=== PATIENT | female | born 2000 ===

== ENCOUNTER 2021-09-01 20:07 | Emergency (ER) | payer SELFPAY ==
--- NOTE | 2021-09-01 21:28 | Emergency Department Report ---
ED ENT HPI - General Chief complaint: Dental/Oral Stated complaint: TOOTHACHE Time Seen by Provider: 09/01/21 20:54 Source: patient Mode of arrival: Ambulatory Limitations: No Limitations - History of Present Illness Initial comments: 20-year-old female no significant past medical history presents emerge department complaining of a 3-day history of left lower molar pain of unknown etiology in the dull throbbing fashion worse with palpation range of motion chewing/eating. She reports no hemoptysis no hematemesis hematochezia, no nausea, no vomiting, no foul odor or strange taste fevers, chills, sweats. She has no known dental trauma to the region MD complaint: tooth pain -: Gradual, Sudden 1 - Pain in region Quality: aching, dull Consistency: constant Improves with: none Worsens with: none Context- Dental: history of dental caries Associated Symptoms: toothache - Related Data Previous Rx's Medication Instructions Recorded Last Taken Type Albuterol Mdi (or & Nicu Only) 1 puff IH Q4-6H PRN #1 inha 09/01/21 Unknown Rx [ProAir HFA Inhaler] Ketorolac [Toradol] 10 mg PO Q6H PRN #15 tablet 09/01/21 Unknown Rx Lidocaine Viscous 2% 5 ml MM Q3H PRN #120 udc 09/01/21 Unknown Rx ED Dental HPI - General Chief complaint: Dental/Oral Stated complaint: TOOTHACHE Time Seen by Provider: 09/01/21 20:54 Source: patient Mode of arrival: Ambulatory Limitations: No Limitations - Related Data Previous Rx's Medication Instructions Recorded Last Taken Type Albuterol Mdi (or & Nicu Only) 1 puff IH Q4-6H PRN #1 inha 09/01/21 Unknown Rx [ProAir HFA Inhaler] Ketorolac [Toradol] 10 mg PO Q6H PRN #15 tablet 09/01/21 Unknown Rx Lidocaine Viscous 2% 5 ml MM Q3H PRN #120 udc 09/01/21 Unknown Rx ED Review of Systems ROS: Stated complaint: TOOTHACHE Other details as noted in HPI Comment: All other systems reviewed and negative ED Past Medical Hx - Past Medical History Previous Medical History?: No - Surgical History Past Surgical History?: No - Medications Home Medications: Home Medications Medication Instructions Recorded Confirmed Last Taken Type Albuterol Mdi (or & Nicu Only) 1 puff IH Q4-6H PRN #1 inha 09/01/21 Unknown Rx [ProAir HFA Inhaler] Ketorolac [Toradol] 10 mg PO Q6H PRN #15 tablet 09/01/21 Unknown Rx Lidocaine Viscous 2% 5 ml MM Q3H PRN #120 udc 09/01/21 Unknown Rx ED Physical Exam - General Limitations: No Limitations General appearance: alert, in no apparent distress - Head Head exam: Present: atraumatic, normocephalic - Eye Eye exam: Present: normal appearance - ENT ENT exam: Present: mucous membranes moist, other (Pain tenderness to tooth number 17 and 18 which seems to be impacting/impacted upon tooth #18 no adjacent gingival swelling. Airway is patent tongue uvula midline no evidence of any peritonsillar abscess is noted.) - Neck Neck exam: Present: normal inspection, tenderness. Absent: lymphadenopathy - Respiratory Respiratory exam: Present: normal lung sounds bilaterally. Absent: respiratory distress, wheezes, rales, chest wall tenderness, accessory muscle use, decreased breath sounds, prolonged expiratory - Cardiovascular Cardiovascular Exam: Present: regular rate, normal rhythm. Absent: systolic murmur, diastolic murmur, rubs, gallop - GI/Abdominal GI/Abdominal exam: Present: soft, normal bowel sounds - Extremities Exam Extremities exam: Present: normal inspection - Back Exam Back exam: Present: normal inspection - Neurological Exam Neurological exam: Present: alert, oriented X3 - Psychiatric Psychiatric exam: Present: normal affect, normal mood - Skin Skin exam: Present: warm, dry, intact, normal color. Absent: rash Critical care attestation.: If time is entered above; I have spent that time in minutes in the direct care of this critically ill patient, excluding procedure time. ED Disposition Clinical Impression: Dentalgia Disposition: 01 HOME / SELF CARE / HOMELESS Is pt being admited?: No Does the pt Need Aspirin: No Condition: Stable Instructions: Tooth Injuries Prescriptions: Lidocaine Viscous 2% 5 ml MM Q3H PRN #120 udc PRN Reason: Pain, Moderate (4-6) Albuterol Mdi (or & Nicu Only) [ProAir HFA Inhaler] 1 puff IH Q4-6H PRN #1 inha PRN Reason: Cough Ketorolac [Toradol] 10 mg PO Q6H PRN #15 tablet PRN Reason: Pain Referrals: [facility] [Outside] - 3-5 Days
== END 2021-09-01 21:40 | disposition left against medical advice (07) ==
LOC: ED 20:07
DX: K08.89 Other specified disorders of teeth and supporting structures (principal)
CPT/HCPCS: 99282